=== PATIENT | male | born 1995 | race Caucasian/White ===

== ENCOUNTER 2017-03-12 03:58 | Emergency (ER) | payer OTHER ==
[~2017-03-12] VITALS: Ht 180.3 cm; Wt 66.0 kg
[~2017-03-12 03:58] MED LIST: ATIVAN1 MG PO; BENADRYL25 MG PO
[2017-03-12 04:48] LABS: HEMATOCRIT 40.7 % (38.0-50.0); MCH 30.9 PG (29.0-34.0); MCHC 34.9 G/DL (30.0-36.0); MCV 88.5 FL (86-99); MEAN PLAT.VOLUME 8.7 uM^3 (9.0-12.4); PLATELET COUNT 314 K/uL (156-360); RBC DIS.WIDTH-CV 11.9 % (11.8-14.6); RBC DIS.WIDTH-SD 38.7 % (39-53); WHITE BLOOD COUNT 13.9 K/uL (4.1-10.2)
[2017-03-12 04:59] LABS: CHLORIDE 103 mEq/L (99-109); POTASSIUM 3.7 mEq/L (3.7-5.4); SODIUM 141 mEq/L (136-147)
[2017-03-12 05:01] LABS: GLUCOSE 115 mg/dL (70-99)
[2017-03-12 05:02] LABS: ANION GAP 15 MEQ/L (2-14)
[2017-03-12 05:03] LABS: TOTAL BILIRUBIN 0.4 mg/dL (0.0-1.0)
[2017-03-12 05:04] LABS: ALKALINE PHOSPHATASE 68 IU/L (3-129)
[2017-03-12 05:05] LABS: GFR ESTIMATE (CALCULATED) > 59 mL/min/
[2017-03-12 05:06] LABS: UREA NITROGEN (BUN) 15 mg/dL (9-23)
[2017-03-12 05:08] LABS: LIPASE 24 U/L (1.0-51.0)
[2017-03-12] MEDS ORDERED: ROXICODONE5 MG PO (06:35)
[2017-03-12] MEDS ORDERED: FLOMAX0.4 MG PO (06:35)
[2017-03-12 06:43] LABS: ADD MIUA? YES; BILIRUBIN NEGATIVE; BLOOD LARGE; COLOR YELLOW ((YELLOW)); GLUCOSE (STRIP) NEGATIVE; KETONES NEGATIVE; LEUKOCYTES NEGATIVE; NITRITE NEGATIVE; PROTEIN (STRIP) 100; SPECIFIC GRAVITY 1.028 (1.000-1.030); UROBILINOGEN 0.2 MG/DL (0.2-1.0)
[2017-03-12 07:03] LABS: RED BLOOD CELLS TNTC /HPF (0-5); UCUL ADDED? YES
[2017-03-12 07:55] VITALS: BP 152/102
== END 2017-03-12 07:59 | disposition home or self-care (01) ==
LOC: EME 03:58
DX: N13.2 Hydronephrosis with renal and ureteral calculous obstruction (principal); F41.9 Anxiety disorder, unspecified; Z87.891 Personal history of nicotine dependence
CPT/HCPCS: 74177; 80053; 81003; 83690; 85027; 87086; 99281; 99285; J1885; J2405; J7030

== ENCOUNTER 2017-08-02 22:44 | Emergency (ER) | payer OTHER ==
[~2017-08-02] VITALS: Ht 188 cm; Wt 69.6 kg
[~2017-08-02 22:44] MED LIST changes: +FLOMAX0.4 MG PO; +ROXICODONE5 MG PO
[2017-08-02 23:30] VITALS: BP 127/88
== END 2017-08-02 23:32 | disposition home or self-care (01) ==
LOC: EME 22:44
DX: S00.432A Contusion of left ear, initial encounter (principal); V49.40XA Driver injured in collision with unspecified motor vehicles in traffic accident, initial encounter; W22.11XA Striking against or struck by driver side automobile airbag, initial encounter; Y92.410 Unspecified street and highway as the place of occurrence of the external cause
CPT/HCPCS: 99281; 99283